=== PATIENT | female | born 1990 | race Two or more races ===

== ENCOUNTER 2019-04-26 17:04 | Emergency (ER) | payer OTHER ==
[~2019-04-26] VITALS: Ht 160 cm; Wt 68.9 kg
[2019-04-26 17:35] LABS: Urine Bacteria NONE SEEN /hpf (None Seen); Urine Blood TRACE /uL (Negative); Urine Specific Gravity 1.023 (1.001-1.035); Urine WBC 1 /hpf (0 - 5)
[2019-04-26] MEDS: ONDANSETRON HCL 4 MG/2 ML VIAL IV ONE (17:54)
[2019-04-26] MEDS: NEOMYCIN-BACITRACIN-POLYM UNITDOSE PKG TOP OINT TOP ONE (17:54)
[2019-04-26] MEDS: MORPHINE SULFATE 4 MG/ML SYR/VIAL IV ONE (17:54)
[2019-04-26] MEDS: LIDOCAINE 1% (LOCAL ANESTH.) PF 5ml SDV ID ONE (17:55)
[2019-04-26 17:59] LABS: Basophils # (auto) 0.1 uL; Basophils % (auto) 0.4 % (0.0-2.0); Eosinophils # (auto) 0.3 uL; Eosinophils % (auto) 1.6 % (0.0-7.0); Hematocrit 43.6 % (36.0-46.0); Hemoglobin 14.7 g/dL (12.2-16.2); Lymphocytes % (auto) 13.2 % (10.0-50.0); Mean Corpuscular Hemoglobin 29.5 pg (28.0-32.0); Mean Corpuscular Hgb Conc. 33.8 g/dL (32.0-36.0); Mean Corpuscular Volume 87.2 fL (80.0-100.0); Monocytes # (auto) 0.9 uL; Monocytes % (auto) 5.9 % (0.0-12.0); Neutrophils # (auto) 12.3 uL; Neutrophils % (auto) 78.9 % (37.0-80.0); Platelet Count (auto) 312 10^3/uL (140-450); White Blood Cell 15.6 10^3/uL (4.4-10.8)
[2019-04-26 18:15] LABS: Albumin 3.7 g/dL (3.4-5.0); Calcium 8.9 mg/dL (8.5-10.1); Potassium 4.4 mmol/L (3.5-5.1)
[2019-04-26 18:18] LABS: BUN/Creatinine Ratio 12.4; Bilirubin, Total 0.3 mg/dL (0.2-1.0); Total Protein 8.1 g/dL (6.4-8.2)
[2019-04-26 19:24] VITALS: BP 136/86
== END 2019-04-26 20:18 | disposition home or self-care (01) ==
LOC: ER 17:13
DX: S01.01XA Laceration without foreign body of scalp, initial encounter (principal); S71.111A Laceration without foreign body, right thigh, initial encounter; S16.1XXA Strain of muscle, fascia and tendon at neck level, initial encounter; V87.8XXA Person injured in other specified noncollision transport accidents involving motor vehicle (traffic), initial encounter; Y93.55 Activity, bike riding; Y92.488 Other paved roadways as the place of occurrence of the external cause; Y99.8 Other external cause status
CPT/HCPCS: 12002; 36415; 70450; 72125; 72131; 72192; 80053; 81001; 85025; 94761; 96374; 96375; 99284; J2270; J2405; J7030